=== PATIENT | male | born 1970 | race Caucasian/White ===

== ENCOUNTER 2016-09-09 20:30 | Emergency (ER) | payer OTHER ==
[~2016-09-09] VITALS: Ht 175.3 cm; Wt 79.4 kg
[2016-09-09 20:36] VITALS: BP 160/85; PULSE 63; RESP 20; TEMP 96.2; O2SAT 100
--- NOTE | 2016-09-09 20:45 | NUR ---
Patient does not wish to proceed with medical care recommended by Dr. Dodd. Patient given information related to possible complications, up to and including , which could occur as a result of leaving hospital at this time. Patient verbalizes understanding of risks involved leaving against medical advice. Patient has signed AMA form.
== END 2016-09-09 20:45 | disposition left against medical advice (07) ==
LOC: SED 20:30
DX: R09.89 Other specified symptoms and signs involving the circulatory and respiratory systems (principal); Z53.21 Procedure and treatment not carried out due to patient leaving prior to being seen by health care provider